=== PATIENT | male | born 2005 | race Caucasian/White ===

== ENCOUNTER 2025-01-29 21:57 | Emergency (ER) | payer OTHER ==
[~2025-01-29] VITALS: Ht 152.4 cm; Wt 86.4 kg
[2025-01-29 22:41] VITALS: BP 127/70; PULSE 69; RESP 18; TEMP 98.1; O2SAT 98
[2025-01-30] MEDS: KETOROLAC TROMETHAMINE 30 MG/ML VIAL IM ONE (00:38)
== END 2025-01-30 01:06 | disposition home or self-care (01) ==
LOC: EMS 22:05
DX: G43.909 Migraine, unspecified, not intractable, without status migrainosus (principal)
CPT/HCPCS: 99283; 96372; J1885